=== PATIENT | male | born 1995 | race African-American/Black ===

== ENCOUNTER 2025-04-15 17:28 | Emergency (ER) | payer MEDICAID, SELFPAY ==
[2025-04-15 17:28] VITALS: BP 100/75; PULSE 157; RESP 64; TEMP 36.1; O2SAT 100
[2025-04-15] MEDS: fentaNYL 100 MCG/2 ML Ampul IV (17:41)
[2025-04-15 17:51] VITALS: BMI 37.8
[2025-04-15] MEDS: Propofol 10MG/Ml 1,000 MG/100 ML Bottle 7.6 MG CONT INF (17:54)
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
[2025-04-15 18:05] LABS: Hematocrit 48.8 % (40-54); Hemoglobin 16.2 g/dL (13.0-16.5); Immature Granulocytes Count 0.030 X10^3/uL (0.0-0.0); Mean Corp Hgb Conc 33.2 g/dL (32-36); Mean Corpuscular Volume 79.0 fL (80-94); Mean Platelet Vol. 11.2 fl (6.2-12.0); NRBC Flagged by Analyzer 0 % (0-5); POSITIVE MORPHOLOGY YES; Platelet Count 296 K/mm3 (150-450); RBC Distribution Width CV 13.5 % (11.6-14.6); RBC Distribution Width SD 38.4 fl (35.1-43.9); Red Blood Count 6.18 M/mm3 (4.6-6.2); White Blood Count 7.7 K/mm3 (4.4-11.0)
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
[2025-04-15 18:10] LABS: Differential Indicated SCAN CRITERIA MET; Prothrombin Time (Protime)PT. 14.1 SECONDS (11.7-14.9)
[2025-04-15 18:11] LABS: Partial Thromboplast Time 21.6 Seconds (24.1-36.2)
[2025-04-15] MEDS: 0.9% Normal Saline (1000mL) 1,000 ML 999 ML IV (18:13)
[2025-04-15] MEDS: Cefazolin 2 GM in 0.9% Normal Saline (100mL Bag) 100 ML IV (18:16)
[2025-04-15 18:24] LABS: Anion Gap 23 (5-15); BUN 19 mg/dL (4-19); BUN/Creat Ratio 11.6 RATIO (10-20); Calcium,Total 11.0 mg/dL (7.6-11.0); Carbon Dioxide 17.4 mmol/L (21.0-32.0); Chloride 103 mmol/L (98-108); Estimated Creatinine Clearance 92.94 ml/min (50-250); Glucose 123 mg/dL (70-99); Potassium 4.0 mmol/L (3.3-5.1)
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
[2025-04-15 18:30] VITALS: BP 165/123; PULSE 140; RESP 16; TEMP 36.3; O2SAT 98
[2025-04-15 18:36] VITALS: BP 165/120; PULSE 140; RESP 16; O2SAT 98
[2025-04-15 18:37] LABS: Alcohol, Blood (Medical)-Serum 25.9 mg/dL (<=10.0)
[2025-04-15 18:55] LABS: CPK Total, Creatine Kinase 1066 U/L (24-195); Triglycerides 89 mg/dL
[2025-04-15 19:05] LABS: Differential Comment SCANNED
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
[2025-04-15 19:24] VITALS: BP 166/119; PULSE 139; RESP 20; TEMP 36.1; O2SAT 93
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
== END 2025-04-15 19:07 | disposition short-term general hospital (02) ==
PROVIDERS: Emergency Provider Emergency Medicine; Visit Provider Emergency Medicine
DX: S09.90XA Unspecified injury of head, initial encounter (principal); R40.2422 Glasgow coma scale score 9-12, at arrival to emergency department; S42.032A Displaced fracture of lateral end of left clavicle, initial encounter for closed fracture; R00.0 Tachycardia, unspecified; S00.81XA Abrasion of other part of head, initial encounter; S60.511A Abrasion of right hand, initial encounter; S60.512A Abrasion of left hand, initial encounter; S70.312A Abrasion, left thigh, initial encounter; S80.212A Abrasion, left knee, initial encounter; Z23 Encounter for immunization; V29.99XA Rider (driver) (passenger) of other motorcycle injured in unspecified traffic accident, initial encounter
CPT/HCPCS: 93005; G0463; 31500; 36430; 51702; 70450; 71045; 71260; 72125; 72170; 74177; 80048; 82077; 82550; 84478; 85025; 85610; 85730; 86850; 86900; 86901; 86920; 90471; 90715; 96365; 99252; 99285; P9016; Q9967; A4216